=== PATIENT | female | born 2000 | race African-American/Black ===

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

== ENCOUNTER 2020-04-28 18:06 | Emergency (ER) | payer SELFPAY ==
[2020-04-28] MEDS ORDERED: AZITHROMYCIN 250 MG TABLET PO ONE (18:26)
[2020-04-28] MEDS ORDERED: CEFTRIAXONE INJ 250 MG VIAL IM ONE (18:26)
[2020-04-28] MEDS ORDERED: LIDOCAINE 1% INJ-PF (10 MG/ML) 30 ML SDV IM ONE (18:26)
--- NOTE | 2020-04-28 18:27 | ER Document Report ---
HPI - HPI Time Seen by Provider: 04/28/20 18:22 Pain Level: Denies Notes: Otherwise healthy 19-year-old female with thick white vaginal discharge. She reports symptoms ongoing for the last few days. She denies any pain, nausea, vomiting, fever, urinary symptoms. She is sexually active. She would like to be also tested for STIs. - ROS Systems Reviewed and Negative: Yes All other systems reviewed and negative - URINARY Notes: Vaginal discharge - REPRODUCTIVE Reproductive: DENIES: : Past Medical History - General Information source: Patient - Social History Smoking Status: Never Smoker Chew tobacco use (# tins/day): No Frequency of alcohol use: None Drug Abuse: None Family History: None Patient has homicidal ideation: No Renal/ Medical History: Denies: Hx Peritoneal Dialysis Skin Medical History: Reports Hx Eczema - Immunizations Immunizations up to date: Yes Vertical Provider Document - CONSTITUTIONAL Notes: PHYSICAL EXAMINATION: GENERAL: Well-appearing, well-nourished and in no acute distress. HEAD: Atraumatic, normocephalic. EYES: Pupils equal round and reactive to light, extraocular movements intact, conjunctiva are normal. ENT: Nares patent, oropharynx clear without exudates. Moist mucous membranes. NECK: Normal range of motion, supple without lymphadenopathy LUNGS: Breath sounds clear to auscultation bilaterally and equal. No wheezes rales or rhonchi. HEART: Regular rate and rhythm without murmurs ABDOMEN: Soft, nontender, nondistended abdomen. No guarding, no rebound. No masses appreciated. Female : Normal external genitalia, thin white vaginal discharge noted at the cervix. No cervical motion or adnexal tenderness. Chaperoned by nursing staff. Musculoskeletal: Normal range of motion, no pitting or edema. No cyanosis. NEUROLOGICAL: Cranial nerves grossly intact. Normal speech, normal gait. Normal sensory, motor exams PSYCH: Normal mood, normal affect. SKIN: Warm, Dry, normal turgor, no rashes or lesions noted. - INFECTION CONTROL TRAVEL OUTSIDE OF THE [place] IN LAST 30 DAYS: No Course - Vital Signs Vital signs: Temp Pulse Resp BP Pulse Ox 97.5 F 70 16 123/64 100 04/28/20 18:22 04/28/20 18:11 04/28/20 18:11 04/28/20 18:11 11/07/20 18:11 Discharge - Discharge Clinical Impression: Bacterial vaginosis UTI (urinary tract infection) Qualifiers: Urinary tract infection type: site unspecified Hematuria presence: with hematuria Qualified Code(s): N39.0 - Urinary tract infection, site not specified Condition: Stable Disposition: HOME, SELF-CARE Additional Instructions: You have an overgrowth of natural vaginal bacteria, called bacterial vaginosis. You are being treated with an antibiotic called metronidazole. Do not drink alcohol while taking this medication. Complete all of the antibiotic even if your symptoms have resolved. Return for abdominal pain, vomiting, fever of greater than 101F, or any other symptoms that are worrisome to you. Please follow-up with your TENSION MACHINE OPERATOR or primary care doctor as needed. Your urine shows findings consistent with a urinary tract infection. Please take all the antibiotics as directed even if your symptoms have improved. Please follow-up with your primary care physician as needed. Return to emergency room if you develop fever >101F, persistent vomiting, become lethargic, have severe pain in your sides, or any other symptoms that are concerning to you. Prescriptions: Metronidazole [Flagyl 500 mg Tablet] 500 mg PO BID #14 tablet Cephalexin [Keflex] 500 mg PO BID #14 capsule Referrals: FLO SHABAZZ MD [Primary Care Provider] - Follow up as needed
[2020-04-28 19:14] LABS: APPEARANCE,URINE CLOUDY; BILIRUBIN,URINE NEGATIVE (NEGATIVE); COLOR,URINE YELLOW; GLUCOSE, URINE NEGATIVE (NEGATIVE); KETONES,URINE NEGATIVE (NEGATIVE); LEUKOCYTE ESTERASE,URINE LARGE (NEGATIVE); NITRITE,URINE NEGATIVE (NEGATIVE); PROTEIN,URINE 100 mg/dL (NEGATIVE); URINE SPECIFIC GRAVITY 1.014; UROBILINOGEN,URINE NEGATIVE mg/dL (<2.0)
[2020-04-28 19:18] LABS: BACTERIA (WET MOUNT) 3+ BACTERIA SEEN; RBCS (WET MOUNT) NO RBCS SEEN; T.VAGINALIS (WET MOUNT) NO TRICHOMONAS SEEN; WBCS (WET MOUNT) FEW WBCS SEEN; YEAST (WET MOUNT) BUDDING YEAST SEEN
[2020-04-28 20:04] VITALS: BP 129/78
[2020-04-28 20:50] LABS: CHLAM PCR DETECTED (NOT DETECT)
== END 2020-04-28 20:05 | disposition home or self-care (01) ==
LOC: ER 18:06
DX: N76.0 Acute vaginitis (principal); B96.89 Other specified bacterial agents as the cause of diseases classified elsewhere; N39.0 Urinary tract infection, site not specified
CPT/HCPCS: 99284; 96372; 87086; 87210; 87088; 81001; 87491; 87591; J3490; J0696; 87186